=== PATIENT | female | born 1940 | race Caucasian/White ===

== ENCOUNTER → 2018-02-06 | Outpatient (CLI) | payer OTHER, BC | LOC: RAD 12:07 | DX: J18.9 Pneumonia, unspecified organism (principal) ==

== ENCOUNTER 2019-09-24 19:28 | Emergency (ER) | payer OTHER, BC ==
[~2019-09-24] VITALS: Ht 170.2 cm; Wt 66.7 kg
[2019-09-24] MEDS ORDERED: ZOCOR 20 MG TAB20 M1 PO (19:46)
[2019-09-24] MEDS ORDERED: ECOTRIN325 MG PO (19:47)
[2019-09-24] MEDS ORDERED: TRAMADOL 50 MG50 MG PO (19:47)
[2019-09-24] MEDS ORDERED: SPIRONOLACTONE100 M1 PO (19:47)
[2019-09-24] MEDS ORDERED: COLACE100 MG PO (19:47)
[2019-09-24] MEDS ORDERED: OXYCODONE PO (19:48)
[2019-09-24] MEDS ORDERED: KEFLEX250 M1 PO (19:49)
[2019-09-24 23:55] VITALS: BP 127/65
== END 2019-09-24 23:58 | disposition home or self-care (01) ==
LOC: ER 19:28
DX: S51.012A Laceration without foreign body of left elbow, initial encounter (principal); Z96.652 Presence of left artificial knee joint; Z88.1 Allergy status to other antibiotic agents; Z88.2 Allergy status to sulfonamides; Z91.041 Radiographic dye allergy status; W01.0XXA Fall on same level from slipping, tripping and stumbling without subsequent striking against object, initial encounter; Y92.89 Other specified places as the place of occurrence of the external cause; Y93.89 Activity, other specified; Y99.8 Other external cause status

== ENCOUNTER → 2019-11-23 | Outpatient (CLI) | payer OTHER, BC ==
[~2019-11-23] MED LIST: COLACE100 MG PO; ECOTRIN325 MG PO; KEFLEX250 M1 PO; OXYCODONE PO; SPIRONOLACTONE100 M1 PO; TRAMADOL 50 MG50 MG PO; ZOCOR 20 MG TAB20 M1 PO
== END ==
LOC: RAD 17:34
DX: R05 Cough (principal); M41.84 Other forms of scoliosis, thoracic region

== ENCOUNTER → 2020-02-14 | Outpatient (CLI) | payer OTHER, BC ==
[~2020-02-14] VITALS: Ht 167.6 cm; Wt 61.7 kg
[~2020-02-14] MED LIST changes: +ACIDOPHILUS1 EAC3 PO; +ALLEGRA ALLERG180 MG PO; +CALCIUM 500 +1 EAC5 PO; +FLONASE 0.05%50 MCG NARES; +LORAZEPAM 0.50.5 MG PO; +MELATONIN3 M1 PO; +PROTONIX 20 MG20 M1 PO
--- NOTE | 2020-02-14 19:34 | P ---
[facility] [place] [address] PROCEDURE REPORT Name: ANDRIY KEYS [id number] Admission: 02/14/20 Attend Phys: Gary Scott Discharge: Date of : 40 Report #: [id number] THIS REPORT FOR: cc: Jose Lewis MD,Gary Holt MD, MD ~ CC: Manolo Lewis DATE OF SERVICE: 02/14/2020 PROCEDURE PERFORMED: Colonoscopy with polypectomies. HISTORY OF PRESENT ILLNESS: The patient is a 79-year-old female with a history of colon polyps, last colonoscopy in 2013 with adenomatous polyps removed. She also has a family history of colon cancer in a grandmother. She denies any symptoms at this time other than constipation, which she has had her entire life. DESCRIPTION OF PROCEDURE: The risks and benefits of the procedure were explained to the patient, those risks including but not limited to bleeding, perforation and the risk of sedation. She understood these risks and gave informed consent. Sedation was given using propofol per anesthesia. Next, a digital rectal exam was initially performed, which was normal. Next, using a pediatric Olympus colonoscope, the scope was placed in the patient's anus and advanced under direct vision to the cecum. The overall prep was good. The cecum and ileocecal valve were normal in appearance. Ascending colon was normal. In the transverse colon, a 4 mm sessile polyp was noted. This was removed with cold forceps, otherwise normal. In the descending colon, a 1 cm sessile polyp was noted. This was removed by snare cautery. In the sigmoid colon, two 5 mm sessile polyps, both removed by snare cautery. Multiple diverticuli were noted in the sigmoid colon as well. No evidence of inflammation. The rectal mucosa was normal. On retroflexion, no abnormalities were noted. The scope was then withdrawn and the procedure terminated. The patient tolerated the procedure well. IMPRESSION: 1. Four colonic polyps as described above. 2. Sigmoid diverticulosis. 3. Otherwise, normal colonoscopy. RECOMMENDATIONS: 1. Await biopsy results. 2. Consider repeat colonoscopy in [address] [address] PROCEDURE REPORT Name: ANDRIY KEYS Sophie Room #: REG [facility] Watkins#: [id number] Admission: 02/14/20 Attend Phys: Gary Scott Discharge: Date of : 40 Report #: [id number] Thank you for allowing me to participate in her care. <ELECTRONICALLY SIGNED> By: Gary Ashraf MD 02/14/20 1934 1110 1358 Gary Ashraf MD /nt
--- NOTE | 2020-02-17 10:08 | PATH ---
[facility] [place] [address] PATHOLOGY RPT PROCEDURE Name: CAROL VALENCIA Room #: REG [facility] Galvin.#: [id number] Admission: 02/14/20 Date of : 40 Discharge: Report #: [id number] Path Case #: [id number] [facility] Accession Number: [id number] . 01 Material submitted: . PART A: colon - BX OF TRANSVERSE COLON. Modifiers: transverse PART B: colon - POLYP AT DESCENDING COLON. Modifiers: descending PART C: sigmoid colon - POLYP AT SIGMOID COLON . 01 Clinical history: . History of polyps . 02 Diagnosis: A. Polyp, transverse colon, endoscopic biopsy: - Tubular adenoma. - Negative for high-grade dysplasia. . B. Polyp, at descending colon, endoscopic biopsy: - Tubular adenoma. - Negative for high-grade dysplasia. . C. Polyp, at sigmoid colon, endoscopic biopsy: - Tubular adenoma. - Negative for high-grade dysplasia. . 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 02 Comment: Part B (polyp at the descending colon) was co-reviewed by Dr. Rosario Gonzalez who concurs with my diagnosis. (IUV:duplicating machine mechanic; 02/16/2020) . 02 Electronically signed: . Aislinn Swanson MD, Pathologist NPI- [id number] . 01 Gross description: . A. The specimen is received in formalin, labeled "Carol Valencia, biopsy of transverse colon". Received are two segments of pale hill soft tissue measuring 0.3 cm each in maximum dimensions. The specimen is submitted entirely in cassette A1. . B. The specimen is received in formalin, labeled "Carol Erik, polyp at descending colon". Received is a segment of light brown soft tissue measuring 1.8 x 0.6 x 0.4 cm in greatest dimensions. The surgical margin is inked. The specimen is bisected and entirely submitted in cassette A1. [address] [address] PATHOLOGY RPT PROCEDURE Name: CAROL VALENCIA Room #: REG [facility]#: [id number] Admission: 02/14/20 Date of : 40 Discharge: Report #: [id number] Path Case #: [id number] . C. The specimen is received in formalin, labeled "Carol Erik, polyp at sigmoid". Received are two segments of pale hill soft tissue ranging in size from 0.2 to 0.5 cm in maximum dimensions. The specimen is submitted entirely in cassette C1. (CAA; 02/15/2020) QAC/QAC 02/15/2020 1047 Local . 02 Pathologist provided ICD-10: D12.3, D12.4, D12.5 . 02 CPT . 647444, 256856, 024751 Specimen Comment: A courtesy copy of this report has been sent to [phone], [phone]- Specimen Comment: [id number], Specimen Comment: Report sent to / DR MEYER Specimen Comment: A duplicate report has been generated due to demographic updates. Performed at: [address], [place] [id number] MD Steven Arrieta MD Phone: [phone] Performed at: [address] [id number] MD Aislinn Swanson MD Phone: [phone]
== END | disposition home or self-care (01) ==
LOC: GI 08:43
DX: K59.00 Constipation, unspecified (principal); D12.3 Benign neoplasm of transverse colon; D12.4 Benign neoplasm of descending colon; D12.5 Benign neoplasm of sigmoid colon; K57.30 Diverticulosis of large intestine without perforation or abscess without bleeding; K21.9 Gastro-esophageal reflux disease without esophagitis; K64.8 Other hemorrhoids; Z86.010 Personal history of colon polyps; Z80.0 Family history of malignant neoplasm of digestive organs; Z79.899 Other long term (current) drug therapy; Z98.890 Other specified postprocedural states; Z96.652 Presence of left artificial knee joint; Z90.49 Acquired absence of other specified parts of digestive tract; Z87.891 Personal history of nicotine dependence; Z91.041 Radiographic dye allergy status; Z88.2 Allergy status to sulfonamides; Z88.8 Allergy status to other drugs, medicaments and biological substances; Z90.710 Acquired absence of both cervix and uterus
CPT/HCPCS: 62110; 62900